=== PATIENT | male | born 1945 | race Caucasian/White ===

== ENCOUNTER 2017-05-09 05:50 | Day surgery (SDC) | payer MEDICARE ==
[2017-05-08 12:20] VITALS: BMI 28.3
[2017-05-09] MEDS ORDERED: Ketorolac Tromethamine 30 MG/ML VIAL ONE (06:26)
[2017-05-09] MEDS ORDERED: CEFAZOLIN/Water 2 GM/20 ML SYRINGE ONE (06:26)
[2017-05-09] MEDS ORDERED: Lidocaine 1% w/Epinephrine 1:200K 30 ML VIAL ONE (06:32)
[2017-05-09] MEDS ORDERED: Bupivacaine 0.25% HCL 30 ML VIAL ONE (06:32)
[2017-05-09 06:49] LABS: #Eosinphils 0.2 thou/uL (0.0-0.7); #Lymphocytes 1.9 thou/uL (1.20-3.40); #Monocytes 0.6 thou/uL (0.11-0.59); #Neutrophils 3.7 thou/uL (1.40-6.50); %Basophils 0.2 % (0.0-1.0); %Eosinophils 3.5 % (0.0-10.0); %Lymphocytes 29.8 % (21.0-51.0); %Monocytes 9.7 % (0.0-10.0); %Neutrophils 56.8 % (42.0-75.0); Hemoglobin 15.3 g/dL (14.0-18.0); Mean Corpuscular HGB CONC 33.7 g/dL (32.0-36.0); Mean Corpuscular Hemoglobin 31.1 pg (27.0-31.0); Mean Corpuscular Volume 92.4 fl (80.0-94.0); Mean Platelet Volume 7.5 fL (7.4-10.4); Platelet Count 194 thou/uL (130-400); RBC Distribution Width 12.4 % (11.5-14.5); Red Blood Cell (RBC) Count 4.91 mill/uL (4.70-6.10); White Blood Cell (WBC) Count 6.5 thou/uL (4.8-10.8)
[2017-05-09] MEDS ORDERED: Fentanyl 100 MCG/2 ML VIAL ONE ×2 (06:53→09:40)
[2017-05-09 07:18] LABS: Anion Gap 11 mmol/L (10-20); BUN (Urea Nitrogen) 18 mg/dL (8.4-25.7); Calc. Creatinine Clearance 84 mL/min (70-130); Calcium 9.8 mg/dL (7.8-10.44); Carbon Dioxide 27 mmol/L (23-31); Chloride 106 mmol/L (98-107); Estimated GFR-MDRD 66; Glucose 102 mg/dL (83-110); Potassium 4.1 mmol/L (3.5-5.1); Sodium 140 mmol/L (136-145)
--- NOTE | 2017-05-09 10:12 | OP ---
DATE OF PROCEDURE: 05/09/2017 PREOPERATIVE DIAGNOSIS: Left inguinal hernia. POSTOPERATIVE DIAGNOSIS: Left inguinal hernia. OPERATION PERFORMED: Robotic assisted left inguinal hernia repair with mesh using 3DMax mesh. SURGEON: Dr. Phil Holder ANESTHESIA: General endotracheal. INDICATIONS: The patient is a 71-year-old white male. He presents with a large visible and palpable left inguinal hernia. He is taken to the operating room at this time for robotic repair using the [employer] robot. OPERATIVE PROCEDURE IN DETAIL: Informed consent was obtained. The patient was taken to the operatin g room where general endotracheal anesthesia was obtained with the patient in supine position. Cheema catheter was placed, abdomen was prepped with ChloraPrep and draped in sterile fashion. Local anest hetic was infiltrated and a 12 mm supraumbilical incision was created through which a Veress needle w as passed into the peritoneal cavity and pneumoperitoneum established using carbon dioxide up to a pr essure of 15 mmHg. A 12 mm trocar port was passed through this same incision. The laparoscopic came ra was passed through this port. Under direct vision, I placed 2 additional 8 mm ports on either etelvina e of midline at the supraumbilical level. The robot was docked to the ports and to the camera and the operation was continued from the robotic console. The pelvis was inspected. The patient had a large easily visible indirect inguinal hernia. There was no evidence of right inguinal hernia. Transverse peritoneal incision was created several centimeters superior to the hernia. Dissection wa s carried out in the preperitoneal space and continued inferiorly. The pubic tubercle and Oliver's l igament were identified medially. The preperitoneal space was dissected laterally below the level of the iliopectineal line. The large hernia sac was carefully dissected off of the cord structures and reduced. The perineum was widely dissected off of the underlying cord structures as well as the vas deferens leaving the large preperitoneal space for mesh placement. Hemostasis was meticulous. The large 3DMax mesh patch was obtained and brought into the abdomen where it was positioned in the prepe ritoneal space. The mesh was secured in place with 2 sutures of 3-0 Vicryl, one of which was placed at the pubic tube rcle and one to the anterior abdominal wall superior to the hernia defect and lateral to the epigastr ic vessels. The lateral aspect of the mesh tucked nicely into the peritoneal pocket. The peritoneum was then closed with a running suture of 3-0 V-LOC. The fascial defect at the 12 mm port site was closed with 0 Vicryl suture using a GraNee needle under direct vision. The lateral ports were removed under direct vision. All ports and instruments were removed. Pneumoperitoneum was carefully evacuated. Quarter percent Marcaine with epinephrine was in filtrated in each port site. Skin edges approximated with 4-0 Monocryl subcuticular suture. The lindsay dder was preloaded with 180 mL of saline and the Cheema catheter was removed. There was a substantial carbon dioxide within the scrotum and this was gently expressed. There were no complications. The patient tolerated the procedure well and was taken to recovery in stable condition.
[2017-05-09] MEDS ORDERED: Lidocaine 1% PF 5 ML VIAL ONE (14:36)
[2017-05-09] MEDS ORDERED: Ondansetron HCl/PF 4 MG/2 ML Vial ONE (14:36)
[2017-05-09] MEDS ORDERED: Propofol 200 MG/20 ML VIAL ONE (14:36)
[2017-05-09] MEDS ORDERED: Dexamethasone 20 MG/5 ML VIAL ONE (14:36)
[2017-05-09] MEDS ORDERED: Glycopyrrolate 0.2 MG/ML 5 ML SYRINGE ONE (14:36)
== END 2017-05-09 11:00 | disposition home or self-care (01) ==
LOC: SDC 05:50
PROVIDERS: ATTEND Specialist
PROC: 0YU64JZ Supplement Left Inguinal Region with Synthetic Substitute, Percutaneous Endoscopic Approach (ICD-10-PCS; principal; 2017-05-09)
PROC: 8E0W4CZ Robotic Assisted Procedure of Trunk Region, Percutaneous Endoscopic Approach (ICD-10-PCS; 2017-05-09)
DX: K40.90 Unilateral inguinal hernia, without obstruction or gangrene, not specified as recurrent (principal); I10 Essential (primary) hypertension; E78.5 Hyperlipidemia, unspecified; N52.9 Male erectile dysfunction, unspecified; Z98.890 Other specified postprocedural states; Z82.49 Family history of ischemic heart disease and other diseases of the circulatory system
CPT/HCPCS: 49650; 80048; 85025; 93005; C1781; 93010; J0131; J1100; J1885; J2001; J2405; J2704; J3010; S0020

== ENCOUNTER 2019-08-05 08:54 | Outpatient (CLI) | payer MEDICARE ==
--- NOTE | 2019-08-05 10:11 | MRI ---
LEFT KNEE MRI WITHOUT IV CONTRAST: HISTORY: Left knee pain, synovial cyst left popliteal space. FINDINGS: Multiplanar, multisequence MRI examination of the left knee is performed. There is moderate joint ef fusion with mild distention of the suprapatellar recess with a large somewhat complicated-appearing, somewhat septated-appearing popliteal fossa cyst measuring approximately 3.6 x 6.0 x 2.5 cm. The pop liteal hiatus is minimally dilated. There is irregular tricompartment cartilage loss. Several small subchondral cystic changes are noted, the most prominent of which involve the medial femoral condyle region. Extensive complex tear of the medial meniscus including the posterior horn and body with a flap component. Intact-appearing dilatation and abnormal increased signal involving the anterior cruciate ligament, e vidence for extensive mucoid degeneration. Posterior cruciate ligament and collateral ligament compl exes appear intact. No evidence for acute abnormal marrow edema. IMPRESSION: 1. Extensive complex tear of the medial meniscus. 2. Joint effusion with prominent popliteal fossa cyst. 3. Fairly extensive mucoid degeneration changes of the anterior cruciate ligament. 4. Irregular tricompartment cartilage loss with several foci of subchondral cystic changes most prom inent in the medial femoral condyle. POS: [facility]
== END 2019-08-05 08:55 | disposition home or self-care (01) ==
LOC: BICMRI 08:54
PROVIDERS: ATTEND Orthopaedic Surgery
DX: M71.22 Synovial cyst of popliteal space [Baker], left knee (principal); S83.232A Complex tear of medial meniscus, current injury, left knee, initial encounter; M17.12 Unilateral primary osteoarthritis, left knee; M25.462 Effusion, left knee

== ENCOUNTER 2021-07-22 13:23 | Outpatient (CLI) | payer MEDICARE ==
[2021-07-22 14:31] LABS: Prothrombin Time 10.5 sec (9.5-12.1)
[2021-07-22 15:31] LABS: Anion Gap 15 mmol/L (10-20); BUN (Urea Nitrogen) 16 mg/dL (8.4-25.7); Calc. Creatinine Clearance 0 mL/min (70-130); Carbon Dioxide 23 mmol/L (23-31); Chloride 107 mmol/L (98-107); Potassium 4.2 mmol/L (3.5-5.1); Sodium 141 mmol/L (136-145)
[2021-07-22 15:32] LABS: Calcium 9.4 mg/dL (7.8-10.44); Glucose 145 mg/dL (83-110)
[2021-07-22 15:37] LABS: #Eosinphils 0.3 10x3/uL (0.0-0.5); #Monocytes 0.5 10x3/uL (0.0-1.1); #Neutrophils 3.8 10x3/uL (1.5-8.4); %Basophils 0.6 % (0.0-2.0); %Eosinophils 4.1 % (0.0-6.0); %Lymphocytes 32.8 % (18.0-47.0); %Monocytes 6.7 % (0.0-10.0); %Neutrophils 55.7 % (40.0-75.0); Mean Corpuscular HGB CONC 33.8 g/dL (32.0-36.0); Mean Corpuscular Volume 88.8 fl (81.2-95.1); Mean Platelet Volume 10.4 fl (7.4-10.4); Platelet Count 214 10x3/uL (150-450); RBC Distribution Width 13.4 % (11.5-14.5); White Blood Cell (WBC) Count 6.8 10x3/uL (3.5-10.5)
[2021-07-22 23:17] LABS: SARS-CoV-2 PCR by NAA Not Detected (NotDetected)
== END 2021-07-22 13:24 | disposition home or self-care (01) ==
LOC: LABBT 13:23
PROVIDERS: ATTEND Orthopaedic Surgery
DX: Z01.812 Encounter for preprocedural laboratory examination (principal); M16.11 Unilateral primary osteoarthritis, right hip; Z20.822 Contact with and (suspected) exposure to COVID-19
CPT/HCPCS: 80048; 85025; 85610; 87081; U0003; U0005

== ENCOUNTER 2021-07-27 05:32 | Inpatient (IN) | payer MEDICARE ==
[2021-07-23 14:07] VITALS: BMI 29.2
[2021-07-27] MEDS ORDERED: Sodium Chloride 0.9% 100 ML ONE (05:52)
[2021-07-27] MEDS ORDERED: Tranexamic Acid 1,000 MG/10 ML VIAL ONE ×2 (05:52→09:33)
[2021-07-27] MEDS ORDERED: Lidocaine 2% Jelly 5 ML TUBE ONE (06:08)
[2021-07-27] MEDS ORDERED: Vancomycin 1.5 GRAM/300 ML BAG 1.5 GM in Premix Bag 1 BAG IVPB SCH (06:15)
[2021-07-27] MEDS ORDERED: fentaNYL Citrate/PF 100 MCG/2 ML SYRINGE ONE (06:29)
[2021-07-27] MEDS ORDERED: Fentanyl 100 MCG/2 ML VIAL ONE ×2 (06:51→10:12)
[2021-07-27] MEDS ORDERED: Midazolam HCl 2 mg/2 ml Vial ONE (06:51)
[2021-07-27] MEDS ORDERED: ceFAZolin (BATCH) 2 GM/100 ML BAG ONE (07:11)
[2021-07-27] MEDS ORDERED: Bupivacaine 0.25% 10 ML VIAL ONE (07:16)
[2021-07-27] MEDS ORDERED: Rocuronium Bromide 10 MG/ML (10ML VIAL) ONE (07:19)
[2021-07-27] MEDS ORDERED: Ondansetron PF 4 MG/2 ML Vial ONE (07:19)
[2021-07-27] MEDS ORDERED: Lidocaine 1.5% w/Epi 1:200K 30 ML VIAL (Epid Use) ONE (07:19)
[2021-07-27] MEDS ORDERED: PROPOFOL 200 MG/20 ML VIAL ONE (07:19)
[2021-07-27] MEDS ORDERED: Glycopyrrolate 0.2 MG/ML 5 ML SYRINGE ONE (07:19)
[2021-07-27] MEDS ORDERED: Dexamethasone 20 MG/5 ML VIAL ONE (07:19)
[2021-07-27] MEDS ORDERED: Lidocaine 1% PF 5 ML VIAL ONE (07:19)
[2021-07-27] MEDS ORDERED: Acetaminophen 500 MG TAB PO PRN (08:04)
[2021-07-27] MEDS ORDERED: traMADol HCl 50 MG TAB PO PRN ×2 (08:15)
[2021-07-27] MEDS ORDERED: fentaNYL Citrate/PF 500 MCG, Bupivacaine 0.75% 10 ML in Sodium Chloride 0.9% 80 ML EPIDURAL SCH (08:15)
[2021-07-27] MEDS ORDERED: Naloxone HCl 0.4 mg/ml Vial IV PRN (08:15)
[2021-07-27] MEDS ORDERED: Zolpidem Tartrate 5 MG TAB PO PRN ×2 (08:15→09:57)
[2021-07-27] MEDS ORDERED: diphenhydrAMINE 25 MG CAP PO PRN ×2 (08:15→09:57)
[2021-07-27] MEDS ORDERED: Promethazine HCl 25 MG/ML VIAL IM PRN ×2 (08:15→09:57)
[2021-07-27] MEDS ORDERED: Promethazine HCl 25 MG SUPP PR PRN (08:15)
[2021-07-27] MEDS ORDERED: diphenhydrAMINE 50 MG/ML VIAL IM PRN (08:15)
[2021-07-27] MEDS ORDERED: Hydrocerin (Eucerin) Cream 120 gm Jar TOP PRN (08:15)
[2021-07-27] MEDS ORDERED: Naloxone HCl 0.4 mg/ml Vial IVP PRN (08:15)
[2021-07-27] MEDS ORDERED: diphenhydrAMINE 50 MG/ML VIAL IVP PRN (08:15)
[2021-07-27] MEDS ORDERED: HYDROcodone/Acetaminophen 5/325 mg Tablet PO PRN ×2 (08:15)
[2021-07-27] MEDS ORDERED: Bupivacaine 0.25% 10 ML VIAL EPIDURAL PRN (08:15)
[2021-07-27] MEDS ORDERED: Ondansetron PF 4 MG/2 ML Vial IVP PRN ×2 (08:15→09:57)
[2021-07-27] MEDS ORDERED: Meperidine HCl/PF 25 MG/ML VIAL ONE (09:00)
[2021-07-27] MEDS ORDERED: Meperidine HCl/PF 25 MG/ML VIAL SLOW IVP PRN (09:02)
[2021-07-27] MEDS ORDERED: Ondansetron HCl/PF 4 MG/2 ML Vial IVP PRN (09:02)
[2021-07-27] MEDS ORDERED: Acetaminophen 325 MG TAB PO PRN (09:57)
[2021-07-27] MEDS ORDERED: Aspirin 81 mg Enteric Coated Tablet PO SCH (10:15)
[2021-07-27] MEDS: Sodium Chloride 0.9% 1,000 ML IV SCH ×2 (10:22→18:22)
[2021-07-27] MEDS ORDERED: tiZANidine HCl 4 MG TAB ONE (10:38)
[2021-07-27] MEDS: Ketorolac Tromethamine 30 MG/ML VIAL IVP SCH ×2 (13:14→23:04)
[2021-07-27] MEDS: ceFAZolin (BATCH) 2 GM in Premix Bag 1 BAG IVPB SCH ×2 (14:41→23:49)
[2021-07-27] MEDS ORDERED: Vancomycin HCl 1.5 GM in Sodium Chloride 0.9% 250 ML 300 ML IVPB SCH (20:00)
[2021-07-27] MEDS: Aspirin 81 mg Enteric Coated Tablet PO SCH (22:13)
[2021-07-28 05:39] LABS: Hemoglobin 11.9 g/dL (14.0-18.0); Mean Corpuscular HGB CONC 32.6 g/dL (32.0-36.0); Mean Corpuscular Hemoglobin 31.1 pg (27.0-31.0); Mean Corpuscular Volume 95.5 fL (78.0-98.0); Platelet Count 153 thou/uL (130-400); RBC Distribution Width 12.4 % (11.5-14.5); Red Blood Cell (RBC) Count 3.83 mill/uL (4.70-6.10); White Blood Cell (WBC) Count 9.4 thou/uL (4.8-10.8)
[2021-07-28] MEDS: Ketorolac Tromethamine 30 MG/ML VIAL IVP SCH (05:42)
[2021-07-28] MEDS: Sodium Chloride 0.9% 1,000 ML IV SCH (05:42)
[2021-07-28] MEDS ORDERED: Ferrous Gluconate 324 MG TAB PO SCH (08:00)
[2021-07-28] MEDS ORDERED: Multivitamin W/ Minerals 1 TAB PO SCH (09:00)
[2021-07-28] MEDS ORDERED: Senokot S 8.6-50 MG TAB PO SCH (09:00)
[2021-07-28] MEDS: Aspirin 81 mg Enteric Coated Tablet PO SCH (09:33)
[2021-07-28 16:37] VITALS: BP 128/78; TEMP 98.2
== END 2021-07-28 16:15 | disposition home health service (06) | DRG 470 ==
LOC: SDC 05:32 → SURG B 09:57 → SDC 13:02 → SURG B 13:02 → OBSVTOIN 07-28 08:41
PROVIDERS: ADMIT Orthopaedic Surgery; ATTEND Orthopaedic Surgery
PROC: 0SR903Z Replacement of Right Hip Joint with Ceramic Synthetic Substitute, Open Approach (ICD-10-PCS; principal; 2021-07-28)
PROC: 3E0T3BZ Introduction of Anesthetic Agent into Peripheral Nerves and Plexi, Percutaneous Approach (ICD-10-PCS; 2021-07-28)
DX: M16.11 Unilateral primary osteoarthritis, right hip (principal); Z20.822 Contact with and (suspected) exposure to COVID-19; I10 Essential (primary) hypertension; E78.5 Hyperlipidemia, unspecified; Z85.828 Personal history of other malignant neoplasm of skin; Z90.89 Acquired absence of other organs; Z98.890 Other specified postprocedural states; Z79.899 Other long term (current) drug therapy
CPT/HCPCS: 36415; 72170; 85027; 96365; 96367; 96372; 96375; 96376; C1776; G0378; J0690; J1100; J1885; J2001; J2175; J2250; J2405; J2550; J2704; J3010; J3370; J3490; J7050; S0020